=== PATIENT | female | born 1985 | race Caucasian/White ===

== ENCOUNTER → 2022-09-13 | Outpatient (REF) | payer BC | LOC: M PLALAB 08:45 | PROVIDERS: ATTEND Specialist | DX: Z34.81 Encounter for supervision of other normal pregnancy, first trimester (principal) ==

== ENCOUNTER → 2022-09-13 | Outpatient (CLI) | payer BC ==
[2022-09-13 13:52] LABS: HEMATOCRIT 39.3 % (36.0-47.0); HEMOGLOBIN 13.5 g/dl (12.0-15.5); MEAN CORPUSCULAR HGB CONC 34.4 g/dl (32.0-36.5); MEAN CORPUSCULAR VOLUME 93.1 fl (80.0-96.0); PLATELET COUNT, AUTOMATED 214 10^3/uL (150-450); RED BLOOD COUNT 4.22 10^6/uL (4.00-5.40); WHITE BLOOD COUNT 7.5 10^3/uL (4.0-10.0)
[2022-09-13 16:05] LABS: GC DNA AMPLIFICATION NEGATIVE (NEGATIVE)
[2022-09-13 16:12] LABS: HIV 1&2 SCREEN CENTAUR NEGATIVE (NEGATIVE)
[2022-09-13 16:21] LABS: HEPATITIS C VIRUS ABY INDEX 0.1 INDEX (<0.8)
== END ==
LOC: M PLALAB 09:09
PROVIDERS: ATTEND Specialist
DX: Z34.81 Encounter for supervision of other normal pregnancy, first trimester (principal)

== ENCOUNTER → 2022-11-12 | Outpatient (CLI) | payer BC | LOC: M WHC 09:49 | PROVIDERS: ATTEND Specialist | DX: Z34.82 Encounter for supervision of other normal pregnancy, second trimester (principal); Z3A.19 19 weeks gestation of pregnancy ==

== ENCOUNTER → 2022-12-11 | Outpatient (CLI) | payer BC | LOC: M WHC 09:56 | PROVIDERS: ATTEND Specialist | DX: Z36.2 Encounter for other antenatal screening follow-up (principal); O30.049 Twin pregnancy, dichorionic/diamniotic, unspecified trimester; Z3A.23 23 weeks gestation of pregnancy ==

== ENCOUNTER → 2022-12-28 | Outpatient (CLI) | payer BC ==
[2022-12-28 14:47] LABS: HEMATOCRIT 34.1 % (36.0-47.0); HEMOGLOBIN 11.6 g/dl (12.0-15.5); MEAN CORPUSCULAR HEMOGLOBIN 33.5 pg (27.0-33.0); MEAN CORPUSCULAR VOLUME 98.6 fl (80.0-96.0); PLATELET COUNT, AUTOMATED 213 10^3/uL (150-450); RED BLOOD COUNT 3.46 10^6/uL (4.00-5.40); WHITE BLOOD COUNT 9.4 10^3/uL (4.0-10.0)
[2022-12-28 14:50] LABS: FREE T4 0.71 NG/DL (0.89-1.76)
[2022-12-28 14:51] LABS: THYROID STIMULATING HORMONE 1.38 uIU/ML (0.55-4.78)
[2022-12-28 16:55] LABS: GC DNA AMPLIFICATION NEGATIVE (NEGATIVE)
== END ==
LOC: M PLALAB 09:19
PROVIDERS: ATTEND Obstetrics & Gynecology
DX: O30.042 Twin pregnancy, dichorionic/diamniotic, second trimester (principal)

== ENCOUNTER → 2023-01-07 | Outpatient (CLI) | payer BC | LOC: M LAB 07:49 | PROVIDERS: ATTEND Obstetrics & Gynecology | DX: R73.01 Impaired fasting glucose (principal) ==

== ENCOUNTER → 2023-01-15 | Outpatient (CLI) | payer BC | LOC: M WHC 09:22 | PROVIDERS: ATTEND Obstetrics & Gynecology | DX: O30.042 Twin pregnancy, dichorionic/diamniotic, second trimester (principal) ==

== ENCOUNTER → 2023-02-14 | Outpatient (CLI) | payer BC | LOC: M WHC 10:23 | PROVIDERS: ATTEND Advanced Practice Midwife | DX: O30.042 Twin pregnancy, dichorionic/diamniotic, second trimester (principal) ==

== ENCOUNTER 2023-02-28 10:41 | Outpatient (CLI) | payer BC ==
[2023-02-28] VITALS (11 sets, daily range): BP systolic 114–179; BP diastolic 55–102; TEMP 99.3
[~2023-02-28] VITALS: Ht 162.6 cm; Wt 109.6 kg
[2023-02-28] MEDS ORDERED: HUMI40KI SC (11:05)
[2023-02-28] MEDS ORDERED: CLAR5TAB11 PO (11:05)
[2023-02-28] MEDS ORDERED: FOLI400T13 PO (11:05)
[2023-02-28] MEDS ORDERED: OMEP10CASR PO (11:05)
[2023-02-28] MEDS ORDERED: LEVO75TA4 PO (11:05)
[2023-02-28] MEDS ORDERED: PREN200C PO (11:05)
[2023-02-28] MEDS ORDERED: HOME MED LIST COMPLETE! XX SCH (11:10)
[2023-02-28 11:57] LABS: TOTAL PROTEIN,RANDOM URINE 14.3 MG/DL (0.0-14.0)
[2023-02-28 12:01] LABS: CREATININE,RANDOM URINE 87.6 MG/DL
[2023-02-28 12:34] LABS: HEMATOCRIT 33.2 % (36.0-47.0); HEMOGLOBIN 11.6 g/dl (12.0-15.5); MEAN CORPUSCULAR HEMOGLOBIN 33.6 pg (27.0-33.0); MEAN CORPUSCULAR HGB CONC 34.9 g/dl (32.0-36.5); MEAN CORPUSCULAR VOLUME 96.2 fl (80.0-96.0); PLATELET COUNT, AUTOMATED 179 10^3/uL (150-450); RED BLOOD COUNT 3.45 10^6/uL (4.00-5.40); WHITE BLOOD COUNT 8.2 10^3/uL (4.0-10.0)
[2023-02-28 12:53] LABS: ALT/SGPT 16 U/L (7.0-40); AST/SGOT < 8 U/L (<34); BILIRUBIN,TOTAL 0.4 MG/DL (0.3-1.2); CREATININE FOR GFR 0.97 MG/DL (0.55-1.30); GLOMERULAR FILTRATION RATE > 60.0 (>60); LDH LACTATE DEHYDROGENASE 177 U/L (120-246); URIC ACID 8.1 MG/DL (3.1-7.8)
[2023-02-28] MEDS ORDERED: BETAMETHASONE SOLUSPAN 6MG/ML 5ML VIAL IM STA (13:25)
== END 2023-02-28 14:30 | disposition home or self-care (01) ==
LOC: M LDO 10:41
PROVIDERS: ATTEND Obstetrics & Gynecology
DX: O13.3 Gestational [pregnancy-induced] hypertension without significant proteinuria, third trimester (principal); O30.043 Twin pregnancy, dichorionic/diamniotic, third trimester; Z98.870 Personal history of in utero procedure during pregnancy; O09.513 Supervision of elderly primigravida, third trimester; Z3A.34 34 weeks gestation of pregnancy
CPT/HCPCS: 36415; 59025; 82247; 82565; 82570; 83615; 84156; 84450; 84460; 84550; 85027; 96372; G0463; J0702

== ENCOUNTER 2023-03-01 13:20 | Outpatient (CLI) | payer BC ==
[~2023-03-01] VITALS: Ht 162.6 cm; Wt 111.2 kg
[~2023-03-01 13:20] MED LIST: CLAR5TAB11 PO; FOLI400T13 PO; HUMI40KI SC; LEVO75TA4 PO; OMEP10CASR PO; PREN200C PO
[2023-03-01 13:43] VITALS: BP 131/83
[2023-03-01] MEDS ORDERED: BETAMETHASONE SOLUSPAN 6MG/ML 5ML VIAL IM ONE (13:45)
== END 2023-03-01 14:40 | disposition home or self-care (01) ==
LOC: M LDO 13:20
PROVIDERS: ATTEND Advanced Practice Midwife
DX: O14.93 Unspecified pre-eclampsia, third trimester (principal); Z3A.35 35 weeks gestation of pregnancy

== ENCOUNTER → 2023-03-06 | Outpatient (CLI) | payer BC ==
[~2023-03-06] MED LIST changes: +ACET500P3 PO
== END ==
LOC: M WHC 13:13
PROVIDERS: ATTEND Obstetrics & Gynecology
DX: O30.043 Twin pregnancy, dichorionic/diamniotic, third trimester (principal); O13.9 Gestational [pregnancy-induced] hypertension without significant proteinuria, unspecified trimester

== ENCOUNTER → 2023-03-06 | Outpatient (CLI) | payer BC | LOC: M WHC 13:14 | PROVIDERS: ATTEND Obstetrics & Gynecology | DX: O30.043 Twin pregnancy, dichorionic/diamniotic, third trimester (principal) ==

== ENCOUNTER 2023-03-08 23:54 | Inpatient (IN) | payer BC ==
[~2023-03-08] VITALS: Ht 162.6 cm; Wt 110.0 kg
[~2023-03-08 23:54] MED LIST changes: -ACET500P3 PO
[2023-03-09] VITALS (28 sets, daily range): BP systolic 108–178; BP diastolic 61–110; TEMP 99; O2SAT 95–99
[2023-03-09] MEDS ORDERED: ACET500P3 PO (00:15)
[2023-03-09] MEDS ORDERED: HOME MED LIST COMPLETE! XX SCH (00:20)
[2023-03-09] MEDS ORDERED: NIFEdipine 10 MG CAP PO STA (00:35)
[2023-03-09] MEDS ORDERED: LABETALOL 100MG/20ML VIAL IV STA (01:05)
[2023-03-09] MEDS ORDERED: TRANEXAMIC ACID INJection 1,000 MG in NS 100 ML IV PRN (01:10)
[2023-03-09] MEDS ORDERED: CARBOPROST TROMETHAMINE 250 MCG/ML AMP IM PRN (01:10)
[2023-03-09] MEDS ORDERED: OXYTOCIN DRIP 30 UNITS in IV 1 EA IV PRN (01:10)
[2023-03-09] MEDS ORDERED: ceFAZolin SOD 2 GM in IV 1 EA IV ONE (01:10)
[2023-03-09 01:12] LABS: TOTAL PROTEIN,RANDOM URINE 10.8 MG/DL (0.0-14.0)
[2023-03-09] MEDS ORDERED: BICITRA 30ML SOLN UDC PO ONE (01:25)
[2023-03-09 01:27] LABS: HEMATOCRIT 32.3 % (36.0-47.0); HEMOGLOBIN 11.2 g/dl (12.0-15.5); MEAN CORPUSCULAR HEMOGLOBIN 33.3 pg (27.0-33.0); MEAN CORPUSCULAR HGB CONC 34.7 g/dl (32.0-36.5); MEAN CORPUSCULAR VOLUME 96.1 fl (80.0-96.0); PLATELET COUNT, AUTOMATED 197 10^3/uL (150-450); RED BLOOD COUNT 3.36 10^6/uL (4.00-5.40); WHITE BLOOD COUNT 9.3 10^3/uL (4.0-10.0)
[2023-03-09 01:35] LABS: LDH LACTATE DEHYDROGENASE 216 U/L (120-246)
[2023-03-09] MEDS ORDERED: MAG Sulf (L&D) 4 GM/100 ML 4 GM in IV 1 EA IV ONE (01:35)
[2023-03-09] MEDS ORDERED: CALCIUM GLUCONATE 1,000 MG in D5W MINI-BAG PLUS 100 ML IV PRN (01:35)
[2023-03-09 01:36] LABS: ALT/SGPT 14 U/L (7.0-40); AST/SGOT 16 U/L (<34); BILIRUBIN,TOTAL 0.3 MG/DL (0.3-1.2); GLOMERULAR FILTRATION RATE > 60.0 (>60)
[2023-03-09] MEDS ORDERED: OXYTOCIN DRIP 30 UNITS in IV 1 EA IV SCH (02:05)
[2023-03-09] MEDS ORDERED: PERCOCET 5MG/325MG TAB PO PRN (02:05)
[2023-03-09] MEDS ORDERED: RHOGAM 300MCG (1500IU) INJ IM SCH (02:05)
[2023-03-09] MEDS ORDERED: SIMETHICONE 80MG CHEW TAB PO PRN (02:05)
[2023-03-09] MEDS ORDERED: AZITHROMYCIN INJ 500MG VIAL As Ordered ONE (02:09)
[2023-03-09] MEDS ORDERED: AZITHROMYCIN INJ 500 MG, VIAL MATE ADAPTER 1 EACH in NS 250 ML IV ONE (02:10)
[2023-03-09 02:35] LABS: URIC ACID 7.5 MG/DL (3.1-7.8)
[2023-03-09 02:58] LABS: CORD GAS ABE A -0.8; CORD GAS HCO3 A 27.5 MMOL/L; CORD GAS O2 SAT A 17.2 %; CORD GAS PH A 7.279 UNITS; CORD GAS PO2 A 10.6 mmHg; CORD GAS SBC A 21.8 MMOL/L; CORD GAS TCO2 A 29.3 MMOL/L
[2023-03-09 02:59] LABS: CORD GAS ABE V -2.2; CORD GAS HCO3 V 24.2 MMOL/L; CORD GAS O2 SAT V 59.8 %; CORD GAS PH V 7.329 UNITS; CORD GAS PO2 V 25.2 mmHg; CORD GAS SBC V 21.7 MMOL/L; CORD GAS TCO2 V 25.6 MMOL/L
[2023-03-09 03:01] LABS: CORD GAS ABE A -4.6; CORD GAS ABE V -3.4; CORD GAS HCO3 A 23.3 MMOL/L; CORD GAS HCO3 V 22.4 MMOL/L; CORD GAS O2 SAT A 51.7 %; CORD GAS O2 SAT V 72.4 %; CORD GAS PCO2 A 53.9 mmHg; CORD GAS PCO2 V 42.8 mmHg; CORD GAS PH A 7.254 UNITS; CORD GAS PH V 7.336 UNITS; CORD GAS PO2 A 22.5 mmHg; CORD GAS PO2 V 27.5 mmHg; CORD GAS SBC A 19.6 MMOL/L; CORD GAS TCO2 V 23.7 MMOL/L
[2023-03-09] MEDS ORDERED: PHENYLephrine 500MCG 5ML (100MCG/ML) SYRINGE As Ordered ONE (03:05)
[2023-03-09] MEDS ORDERED: METOCLOPRAMIDE INJ 10MG/2ML VIAL As Ordered ONE (03:05)
[2023-03-09] MEDS ORDERED: OXYTOCIN 30UNITS IN 0.9% NaCl 500ML IV BAG As Ordered ONE ×2 (03:05→03:07)
[2023-03-09] MEDS ORDERED: KETOROLAC 60MG 2ML VIAL As Ordered ONE (03:05)
[2023-03-09] MEDS ORDERED: MORPHINE PRES-FREE INJ 10 MG/10 ML VIAL As Ordered ONE (03:05)
[2023-03-09] MEDS ORDERED: ONDANSETRON 4MG 2ML VIAL As Ordered ONE (03:05)
[2023-03-09] MEDS ORDERED: ACETAMINOPHEN 1000MG 100ML IV BAG As Ordered ONE (03:05)
[2023-03-09] MEDS ORDERED: **NOTE PATIENT COMMENT** MISC XX SCH (03:30)
[2023-03-09] MEDS ORDERED: METOCLOPRAMIDE INJ 10MG/2ML VIAL IV PRN (03:30)
[2023-03-09] MEDS: SLF 3 ML SYR IV SCH ×3 (03:30→19:30)
[2023-03-09] MEDS ORDERED: diphenhydrAMINE 50MG/ML VIAL IV PRN (03:30)
[2023-03-09] MEDS ORDERED: MEPERIDINE 25 MG/ML 1ML VIAL IV PRN (03:30)
[2023-03-09] MEDS ORDERED: oxyCODONE 5MG TAB PO PRN (03:30)
[2023-03-09] MEDS ORDERED: HYDROMORPHONE HCL 0.5 MG/ 0.5 ML SYRINGE IV PRN (03:30)
[2023-03-09] MEDS ORDERED: fentaNYL 100 MCG/2 ML INJECTION IV PRN (03:30)
[2023-03-09] MEDS ORDERED: ONDANSETRON 4MG 2ML VIAL IV PRN (03:30)
[2023-03-09] MEDS ORDERED: NALOXONE INJ 0.4MG/1ML VIAL IV PRN ×2 (03:30)
[2023-03-09] MEDS: MAG Sulf (OBGYN) 20GM/500ML 20,000 MG in IV 1 EA IV SCH ×2 (05:10→15:14)
[2023-03-09] MEDS: OMEPRAZOLE 20MG CAP PO SCH (09:00)
[2023-03-09] MEDS: LORATADINE 10 MG TAB PO SCH (09:00)
[2023-03-09] MEDS: LR 1,000 ML IV SCH ×2 (09:12→21:57)
[2023-03-09] MEDS: LEVOTHYROXINE 37.5MCG PER 1/2TAB (0.0375MG) PO SCH (09:12)
[2023-03-09] MEDS: DOCUSATE SODIUM 100MG CAPSULE PO SCH ×2 (09:12→19:34)
[2023-03-09] MEDS: PRENATAL VITAMINS CHEWABLE TABLET PO SCH (09:12)
[2023-03-09] MEDS: ACETAMINOPHEN 500 MG TAB PO PRN (19:35)
[2023-03-10] VITALS (10 sets, daily range): BP systolic 127–165; BP diastolic 68–87; TEMP 97.8–98.5; O2SAT 76–100
[2023-03-10] MEDS: MAG Sulf (OBGYN) 20GM/500ML 20,000 MG in IV 1 EA IV SCH (04:25)
[2023-03-10] MEDS: LEVOTHYROXINE 37.5MCG PER 1/2TAB (0.0375MG) PO SCH (05:49)
[2023-03-10] MEDS: LORATADINE 10 MG TAB PO SCH (09:16)
[2023-03-10] MEDS: OMEPRAZOLE 20MG CAP PO SCH (09:17)
[2023-03-10] MEDS: PRENATAL VITAMINS CHEWABLE TABLET PO SCH (09:17)
[2023-03-10] MEDS: DOCUSATE SODIUM 100MG CAPSULE PO SCH ×2 (09:17→20:33)
[2023-03-10] MEDS: ACETAMINOPHEN 500 MG TAB PO PRN ×2 (11:01→17:48)
[2023-03-10] MEDS: LR 1,000 ML IV SCH (11:05)
[2023-03-10] MEDS: ONDANSETRON 4MG 2ML VIAL IV PRN ×2 (15:47→22:36)
[2023-03-10] MEDS ORDERED: MOM 30ML SUSPENSION UDC PO PRN (16:00)
[2023-03-11] VITALS (8 sets, daily range): BP systolic 122–156; BP diastolic 67–89; O2SAT 95–100
[2023-03-11] MEDS: LEVOTHYROXINE 37.5MCG PER 1/2TAB (0.0375MG) PO SCH (06:09)
[2023-03-11] MEDS ORDERED: MEASLES,MUMPS,RUBELLA VACCINE INJ (MMR-II) SC.IMMUN ONE (09:00)
[2023-03-11] MEDS: LORATADINE 10 MG TAB PO SCH (10:03)
[2023-03-11] MEDS: PRENATAL VITAMINS CHEWABLE TABLET PO SCH (10:03)
[2023-03-11] MEDS: DOCUSATE SODIUM 100MG CAPSULE PO SCH ×2 (10:03→21:12)
[2023-03-11] MEDS: OMEPRAZOLE 20MG CAP PO SCH (10:05)
[2023-03-11] MEDS ORDERED: LABETALOL 200 MG TAB PO ONE (11:20)
[2023-03-11] MEDS: ACETAMINOPHEN 500 MG TAB PO PRN (13:05)
[2023-03-11] MEDS ORDERED: FUROSEMIDE 20MG/2ML VIAL IV ONE (17:05)
[2023-03-11] MEDS: LABETALOL 200 MG TAB PO SCH (21:13)
[2023-03-12 02:00] VITALS: BP 133/65; O2SAT 97
[2023-03-12] MEDS: LEVOTHYROXINE 37.5MCG PER 1/2TAB (0.0375MG) PO SCH (05:50)
[2023-03-12 06:00] VITALS: BP 150/86; O2SAT 96
[2023-03-12 07:25] LABS: HEMATOCRIT 23.6 % (36.0-47.0); HEMOGLOBIN 7.6 g/dl (12.0-15.5); MEAN CORPUSCULAR HEMOGLOBIN 33.2 pg (27.0-33.0); MEAN CORPUSCULAR HGB CONC 32.2 g/dl (32.0-36.5); MEAN CORPUSCULAR VOLUME 103.1 fl (80.0-96.0); PLATELET COUNT, AUTOMATED 197 10^3/uL (150-450); RED BLOOD COUNT 2.29 10^6/uL (4.00-5.40); WHITE BLOOD COUNT 9.9 10^3/uL (4.0-10.0)
[2023-03-12 07:52] LABS: LDH LACTATE DEHYDROGENASE 270 U/L (120-246)
[2023-03-12 07:53] LABS: ALT/SGPT 53 U/L (7.0-40); AST/SGOT 64 U/L (<34); BILIRUBIN,TOTAL 0.4 MG/DL (0.3-1.2); CREATININE FOR GFR 0.92 MG/DL (0.55-1.30); GLOMERULAR FILTRATION RATE > 60.0 (>60)
[2023-03-12] MEDS: OMEPRAZOLE 20MG CAP PO SCH (09:50)
[2023-03-12] MEDS: LORATADINE 10 MG TAB PO SCH (09:50)
[2023-03-12] MEDS: DOCUSATE SODIUM 100MG CAPSULE PO SCH (09:50)
[2023-03-12] MEDS: PRENATAL VITAMINS CHEWABLE TABLET PO SCH (09:50)
[2023-03-12 09:54] VITALS: BP_SYST 136; BP_DIAS 74; BP_DIAS 76
[2023-03-12] MEDS: LABETALOL 200 MG TAB PO SCH (09:54)
[2023-03-12 10:00] VITALS: BP 136/74; O2SAT 97
[2023-03-12 14:00] VITALS: BP 110/57; O2SAT 98
[2023-03-12 16:19] LABS: URIC ACID 8.1 MG/DL (3.1-7.8)
[2023-03-12 16:20] LABS: ALT/SGPT 66 U/L (7.0-40); AST/SGOT 64 U/L (<34); BILIRUBIN,TOTAL 0.4 MG/DL (0.3-1.2); CREATININE FOR GFR 0.99 MG/DL (0.55-1.30); GLOMERULAR FILTRATION RATE > 60.0 (>60); LDH LACTATE DEHYDROGENASE 244 U/L (120-246)
[2023-03-12] MEDS ORDERED: LABE20TAB PO (16:23)
[2023-03-12] MEDS ORDERED: COLA100C5 PO (16:25)
[2023-03-12] MEDS ORDERED: IBUP80TA PO (16:25)
== END 2023-03-12 17:05 | disposition home or self-care (01) | DRG 540 ==
LOC: M LDO 23:54 → M LDI 03-09 01:05 → UNDODISIN 03-09 15:45 → M OBS 03-09 15:45
PROVIDERS: ADMIT Advanced Practice Midwife; ATTEND Obstetrics & Gynecology
PROC: 10D00Z1 Extraction of Products of Conception, Low, Open Approach (ICD-10-PCS; principal; 2023-03-09 02:15)
DX: O14.14 Severe pre-eclampsia complicating childbirth (principal); O30.043 Twin pregnancy, dichorionic/diamniotic, third trimester; O32.2XX2 Maternal care for transverse and oblique lie, fetus 2; Z37.2 Twins, both liveborn; Z3A.36 36 weeks gestation of pregnancy; M06.9 Rheumatoid arthritis, unspecified; E03.9 Hypothyroidism, unspecified; K21.9 Gastro-esophageal reflux disease without esophagitis; O99.284 Endocrine, nutritional and metabolic diseases complicating childbirth; O99.62 Diseases of the digestive system complicating childbirth; O26.893 Other specified pregnancy related conditions, third trimester; Z79.890 Hormone replacement therapy; Z79.899 Other long term (current) drug therapy

== ENCOUNTER 2023-03-20 16:33 | Observation (INO) | payer BC ==
[~2023-03-20] VITALS: Ht 162.6 cm; Wt 84.3 kg
[~2023-03-20 16:33] MED LIST changes: +ACET500P3 PO; +COLA100C5 PO; +IBUP80TA PO; +LABE20TAB PO
[2023-03-20 18:06] LABS: BASO % 0.4 % (0.0-1.0); EOS # 0.3 10^3/uL (0.0-0.5); EOS % 3.7 % (0.0-3.0); HEMATOCRIT 31.5 % (36.0-47.0); HEMOGLOBIN 10.2 g/dl (12.0-15.5); LYMPH # 1.7 10^3/uL (1.5-5.0); LYMPH % 19.8 % (24.0-44.0); MEAN CORPUSCULAR HEMOGLOBIN 32.6 pg (27.0-33.0); MEAN CORPUSCULAR HGB CONC 32.4 g/dl (32.0-36.5); MEAN CORPUSCULAR VOLUME 100.6 fl (80.0-96.0); MONO # 0.6 10^3/uL (0.0-0.8); MONO % 6.6 % (2.0-8.0); NEUTROPHILS # 5.8 10^3/uL (1.5-8.5); NEUTROPHILS % 69.3 % (36.0-66.0); PLATELET COUNT, AUTOMATED 273 10^3/uL (150-450); RED BLOOD COUNT 3.13 10^6/uL (4.00-5.40); WHITE BLOOD COUNT 8.4 10^3/uL (4.0-10.0)
[2023-03-20 18:29] LABS: BLOOD UREA NITROGEN 16 MG/DL (9-23); CALCIUM LEVEL 8.5 MG/DL (8.5-10.1); CARBON DIOXIDE LEVEL 27 MMOL/L (20-31); CHLORIDE LEVEL 108 MMOL/L (98-107); CREATININE FOR GFR 0.91 MG/DL (0.55-1.30); GLOMERULAR FILTRATION RATE > 60.0 (>60); GLUCOSE, FASTING 89 MG/DL (60-100); POTASSIUM SERUM 4.6 MMOL/L (3.5-5.1); SODIUM LEVEL 142 MMOL/L (136-145)
[2023-03-20 21:16] LABS: BASO % 0.4 % (0.0-1.0); EOS # 0.3 10^3/uL (0.0-0.5); EOS % 3.7 % (0.0-3.0); HEMATOCRIT 31.3 % (36.0-47.0); HEMOGLOBIN 10.3 g/dl (12.0-15.5); LYMPH # 2.2 10^3/uL (1.5-5.0); MEAN CORPUSCULAR HEMOGLOBIN 32.7 pg (27.0-33.0); MEAN CORPUSCULAR HGB CONC 32.9 g/dl (32.0-36.5); MEAN CORPUSCULAR VOLUME 99.4 fl (80.0-96.0); MONO # 0.6 10^3/uL (0.0-0.8); MONO % 7.1 % (2.0-8.0); NEUTROPHILS % 61.6 % (36.0-66.0); PLATELET COUNT, AUTOMATED 285 10^3/uL (150-450); RED BLOOD COUNT 3.15 10^6/uL (4.00-5.40)
[2023-03-20] MEDS ORDERED: ACETAMINOPHEN TAB 650MG DOSE (2X325MG) PO PRN (22:20)
[2023-03-20] MEDS: LR 1,000 ML IV SCH (22:45)
[2023-03-20 23:32] LABS: RSV AMPLIFICATION NEGATIVE (NEGATIVE)
[2023-03-21 01:00] VITALS: BP 159/68; TEMP 98.1; O2SAT 96
[2023-03-21] MEDS ORDERED: PRENTAB6 PO (02:50)
[2023-03-21] MEDS ORDERED: FLON1SPR NARES (02:50)
[2023-03-21] MEDS ORDERED: HUMI40KI SC (02:50)
[2023-03-21] MEDS ORDERED: IBUP1TAB7 PO (02:50)
[2023-03-21] MEDS ORDERED: SYNT75TA PO (02:50)
[2023-03-21] MEDS ORDERED: LABE200T5 PO (02:50)
[2023-03-21] MEDS ORDERED: FOLI400T5 PO (02:50)
[2023-03-21] MEDS ORDERED: OMEP1CAP73 PO (02:50)
[2023-03-21] MEDS ORDERED: COLA100C5 PO (02:50)
[2023-03-21] MEDS ORDERED: CLAR10TA7 PO (02:50)
[2023-03-21] MEDS ORDERED: HOME MED LIST COMPLETE! XX SCH (02:55)
[2023-03-21] MEDS ORDERED: PILL CUTTER 1 EACH XX PRN (03:00)
[2023-03-21 05:18] LABS: HEMATOCRIT 27.5 % (36.0-47.0); HEMOGLOBIN 9.2 g/dl (12.0-15.5); MEAN CORPUSCULAR HGB CONC 33.5 g/dl (32.0-36.5); MEAN CORPUSCULAR VOLUME 98.6 fl (80.0-96.0); PLATELET COUNT, AUTOMATED 227 10^3/uL (150-450); RED BLOOD COUNT 2.79 10^6/uL (4.00-5.40); WHITE BLOOD COUNT 6.5 10^3/uL (4.0-10.0)
[2023-03-21 05:54] LABS: BLOOD UREA NITROGEN 13 MG/DL (9-23); CALCIUM LEVEL 8.3 MG/DL (8.5-10.1); CARBON DIOXIDE LEVEL 27 MMOL/L (20-31); CHLORIDE LEVEL 108 MMOL/L (98-107); CREATININE FOR GFR 0.82 MG/DL (0.55-1.30); GLOMERULAR FILTRATION RATE > 60.0 (>60); GLUCOSE, FASTING 87 MG/DL (60-100); SODIUM LEVEL 142 MMOL/L (136-145)
[2023-03-21 06:00] VITALS: BP 133/73; TEMP 98.3; O2SAT 98
[2023-03-21] MEDS ORDERED: LEVOTHYROXINE 37.5MCG PER 1/2TAB (0.0375MG) PO SCH (06:00)
[2023-03-21] MEDS: LR 1,000 ML IV SCH (08:22)
[2023-03-21 08:30] VITALS: BP 117/61; TEMP 97.9; O2SAT 97
[2023-03-21] MEDS ORDERED: OMEPRAZOLE 20MG CAP PO SCH (09:00)
[2023-03-21] MEDS ORDERED: LABETALOL 100MG TAB PO SCH (09:00)
[2023-03-21] MEDS ORDERED: LORATADINE 10 MG TAB PO SCH (09:00)
[2023-03-21] MEDS ORDERED: LABETALOL 200 MG TAB PO SCH (09:00)
[2023-03-21] MEDS ORDERED: diphenhydrAMINE 25MG CAP PO PRN (09:40)
[2023-03-21 09:54] VITALS: BP 117/61
[2023-03-21] MEDS ORDERED: LABE100T6 PO (11:30)
[2023-03-21] MEDS ORDERED: FERR325T3 PO (11:30)
== END 2023-03-21 11:44 | disposition home or self-care (01) ==
LOC: M ED 16:33 → M ED INP 22:19 → ENRESERV 03-21 00:06 → M PED 03-21 00:58
PROVIDERS: ADMIT Specialist; ATTEND Specialist
DX: O72.2 Delayed and secondary postpartum hemorrhage (principal); O14.15 Severe pre-eclampsia, complicating the puerperium; M06.9 Rheumatoid arthritis, unspecified; E03.9 Hypothyroidism, unspecified; K21.9 Gastro-esophageal reflux disease without esophagitis; O99.285 Endocrine, nutritional and metabolic diseases complicating the puerperium; O99.63 Diseases of the digestive system complicating the puerperium; Z79.899 Other long term (current) drug therapy; Z79.890 Hormone replacement therapy

== ENCOUNTER → 2023-06-17 | Outpatient (REF) | payer BC ==
[~2023-06-17] MED LIST changes: +CLAR10TA7 PO; +FERR325T3 PO; +FLON1SPR NARES; +FOLI400T5 PO; +IBUP1TAB7 PO; +LABE100T6 PO; +LABE200T5 PO; +OMEP1CAP73 PO; +PRENTAB6 PO; +SYNT75TA PO
== END ==
LOC: M SFHCWAGY 17:38
PROVIDERS: ATTEND Nurse Practitioner Family
DX: N39.0 Urinary tract infection, site not specified (principal)

== ENCOUNTER → 2023-08-08 | Outpatient (REF) | payer BC | LOC: M SFHCWAGY 16:13 | PROVIDERS: ATTEND Nurse Practitioner Family | DX: Z12.4 Encounter for screening for malignant neoplasm of cervix (principal) ==

== ENCOUNTER 2023-10-15 11:31 | Day surgery (SDC) | payer BC ==
[~2023-10-15] VITALS: Ht 162.6 cm; Wt 73.8 kg
[~2023-10-15 11:31] MED LIST changes: +OMEP-173 PO
[2023-10-15] MEDS ORDERED: CLAR10CA3 PO (12:12)
[2023-10-15] MEDS ORDERED: LR 1,000 ML IV SCH (12:20)
[2023-10-15] MEDS ORDERED: ONDANSETRON 4MG 2ML VIAL As Ordered ONE (12:42)
[2023-10-15] MEDS ORDERED: MIDAZOLAM INJ 2MG/2ML VIAL As Ordered ONE (12:42)
[2023-10-15] MEDS ORDERED: propofoL 200 MG/20 ML VIAL As Ordered ONE (12:42)
[2023-10-15] MEDS ORDERED: fentaNYL 100 MCG/2 ML INJECTION As Ordered ONE (12:42)
[2023-10-15] MEDS ORDERED: ROCURONIUM BROMIDE 50MG/5ML VIAL As Ordered ONE (12:42)
[2023-10-15] MEDS ORDERED: LIDOCAINE 2% 100MG/5ML SDV (FOR ANES.) As Ordered ONE (12:42)
[2023-10-15] MEDS ORDERED: ISOVUE-M 300 61% 15ML VIAL As Ordered ONE (13:03)
[2023-10-15] MEDS ORDERED: METOCLOPRAMIDE INJ 10MG/2ML VIAL As Ordered ONE (13:08)
[2023-10-15] MEDS: ceFAZolin SOD 2 GM in IV 1 EA IV ONE (13:23)
[2023-10-15] MEDS ORDERED: KETOROLAC 60MG 2ML VIAL As Ordered ONE (14:19)
[2023-10-15] MEDS ORDERED: SUGAMMADEX SODIUM 500 MG/5 ML VIAL (BRIDION) As Ordered ONE (14:19)
[2023-10-15] MEDS ORDERED: ACETAMINOPHEN 1000MG 100ML IV BAG As Ordered ONE (14:19)
[2023-10-15] MEDS ORDERED: oxyCODONE 5MG TAB PO PRN (14:35)
[2023-10-15] MEDS ORDERED: ONDANSETRON 4MG 2ML VIAL IV PRN (14:35)
[2023-10-15] MEDS ORDERED: fentaNYL 100 MCG/2 ML INJECTION IV PRN (14:35)
[2023-10-15 15:40] VITALS: BP 133/81; TEMP 97.6; O2SAT 98
== END 2023-10-15 15:49 | disposition home or self-care (01) ==
LOC: M SDC 11:31
PROVIDERS: ATTEND Surgery
DX: K80.10 Calculus of gallbladder with chronic cholecystitis without obstruction (principal); I10 Essential (primary) hypertension; E03.9 Hypothyroidism, unspecified; M06.9 Rheumatoid arthritis, unspecified; K21.9 Gastro-esophageal reflux disease without esophagitis; Z79.899 Other long term (current) drug therapy; Z79.620 Long term (current) use of immunosuppressive biologic
CPT/HCPCS: 47562; 81025; 88304; J0131; J0665; J0690; J1100; J1885; J2250; J2405; J2765; J3010; Q9967